=== PATIENT | female | born 1985 | race Caucasian/White ===

== ENCOUNTER 2019-08-21 08:08 | Emergency (ER) | payer OTHER, SELFPAY ==
[2019-08-21] MEDS ORDERED: Ketorolac Tromethamine 30 MG/ML VIAL ONE ×2 (08:52→08:56)
[2019-08-21] MEDS ORDERED: Dexamethasone 10 MG/ML VIAL ONE (08:52)
[2019-08-21] MEDS ORDERED: Ondansetron ODT 4 MG TAB ONE (08:52)
[2019-08-21] MEDS ORDERED: Acetaminophen 500 MG TAB ONE (08:52)
== END 2019-08-21 11:24 | disposition home or self-care (01) ==
LOC: ERS 08:08
DX: R51 Headache (principal); Z87.891 Personal history of nicotine dependence
CPT/HCPCS: 96372; 99283; J1100; J1885; Q0162